=== PATIENT | female | born 1980 | race Two or more races ===

== ENCOUNTER 2019-07-17 08:34 | Emergency (ER) | payer MEDICAID ==
[~2019-07-17] VITALS: Ht 154.9 cm; Wt 85.7 kg
[2019-07-17 08:50] VITALS: BP 93/33
[2019-07-17] MEDS ORDERED: KETOROLAC TROMETH 60MG/2ML VIAL IM ONE (09:00)
== END 2019-07-17 09:47 | disposition home or self-care (01) ==
LOC: ER 08:34
DX: S39.012A Strain of muscle, fascia and tendon of lower back, initial encounter (principal); Z90.710 Acquired absence of both cervix and uterus; X50.0XXA Overexertion from strenuous movement or load, initial encounter; Y93.89 Activity, other specified; Y92.89 Other specified places as the place of occurrence of the external cause; Y99.8 Other external cause status
CPT/HCPCS: 96372; 99283; J1885

== ENCOUNTER 2021-09-07 19:53 | Emergency (ER) | payer MEDICAID ==
[~2021-09-07] VITALS: Ht 154.9 cm; Wt 80.7 kg
[2021-09-07 19:53] VITALS: BP 113/58
[2021-09-07] MEDS ORDERED: TETANUS-DIPTH-ACEL PERTUSSIS 0.5ML SYR Tdap IM ONE (21:00)
[2021-09-07] MEDS ORDERED: NEOMYCIN-BACITRACIN-POLYM UNITDOSE PKG TOP OINT TOP ONE (21:00)
[2021-09-07] MEDS ORDERED: LIDOCAINE 1% HCL (LOCAL ANESTH.) INJ 20ML MDV ID ONE (21:00)
== END 2021-09-07 22:02 | disposition home or self-care (01) ==
LOC: ER 19:55
DX: S71.111A Laceration without foreign body, right thigh, initial encounter (principal); W26.8XXA Contact with other sharp object(s), not elsewhere classified, initial encounter; Y93.89 Activity, other specified; Y92.89 Other specified places as the place of occurrence of the external cause; Y99.8 Other external cause status
CPT/HCPCS: 12002; 90471; 90715; 99283; J2001